=== PATIENT | female | born 1985 | race American Indian/Alaskan Native ===

== ENCOUNTER 2018-07-06 07:22 | Emergency (ER) | payer OTHER ==
[2018-07-06 07:25] VITALS: BP 125/69
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
--- NOTE | 2018-07-06 09:28 | XRay Report ---
CERVICAL SPINE, 5 views: History: Neck injury. Views of the cervical spine demonstrate normal bony alignment, vertebral height and interspace distances. Oblique views show patent foramina and normal apophyseal joint alignment. The prevertebral soft tissues are not thickened. IMPRESSION: Cervical spine within normal limits. No acute injury is appreciated.
--- NOTE | 2018-07-06 09:29 | XRay Report ---
RIGHT KNEE, 3 views: History: Knee injury The bony architecture is intact without evidence of fracture or dislocation. No significant soft tissue abnormality is seen. IMPRESSION: Right knee within normal limits.
== END 2018-07-06 09:18 | disposition home or self-care (01) ==
LOC: ED 07:22
DX: M54.2 Cervicalgia (principal); M25.561 Pain in right knee; V89.2XXA Person injured in unspecified motor-vehicle accident, traffic, initial encounter; Y93.89 Activity, other specified; Y92.488 Other paved roadways as the place of occurrence of the external cause; Y99.8 Other external cause status
CPT/HCPCS: 72050; 99283